=== PATIENT | male | born 1945 | race Caucasian/White ===

== ENCOUNTER 2019-03-07 09:03 | Day surgery (SDC) | payer MEDICARE, BC ==
[2019-03-06 12:39] LABS: CLARITY,URINE CLEAR (Clear); COLOR,URINE STRAW (Yellow); GLUCOSE, URINE NEGATIVE (Neg); KETONES,URINE NEGATIVE (Neg); LEUKOCYTE ESTERASE ,URINE NEGATIVE (Neg); NITRITES, URINE NEGATIVE (Neg); OCCULT BLOOD,URINE NEGATIVE (Neg); PROTEIN,URINE NEGATIVE (Neg); UROBILINOGEN,URINE 0.2 E.U/dL (0.2-1.0)
[2019-03-06 12:40] LABS: UA COLLECTION TYPE VOIDED
[2019-03-06 12:44] LABS: BASOPHILS % (AUTO) 0.5 % (0-1); EOSINOPHILS # (AUTO) 0.1 X10'3 (0-0.9); LYMPHOCYTES # (AUTO) 1.7 X10'3 (1.1-4.8); LYMPHOCYTES % (AUTO) 27.5 % (21-51); MEAN CORPUSCULAR HEMOGLOBIN 33.2 PG (27.0-31.0); MEAN CORPUSCULAR HGB CONC 35.1 g/dL (33.0-36.5); MEAN CORPUSCULAR VOLUME 94.6 FL (78-98); MONOCYTES # (AUTO) 0.7 X10'3 (0-0.9); MONOCYTES % (AUTO) 11.8 % (2-12); NEUTROPHILS # (AUTO) 3.7 X10'3 (1.8-7.7); NEUTROPHILS % (AUTO) 58.2 % (42-75); PRE OP HEMATOCRIT 41.5 % (42.0-52.0); PRE OP HEMOGLOBIN 14.6 g/dL (14.0-17.9); PRE OP PLATELET COUNT 174 X10'3 (140-440); RED BLOOD COUNT 4.39 X10'6 (4.70-6.10); RED CELL DISTRIBUTION WIDTH 13.5 % (11.5-14.5)
[2019-03-06 12:55] LABS: ALBUMIN 3.9 G/DL (3.4-5.0); ALBUMIN/GLOBULIN RATIO 1.3 (1.1-1.5); ALKALINE PHOSPHATASE 83 IU/L (46-116); BLOOD UREA NITROGEN 14 MG/DL (7-18); BUN/CREATININE RATIO 14.3 (5.4-32.0); CALCIUM 9.7 MG/DL (8.5-10.1); CHLORIDE 101 MMOL/L (99-107); CREATININE 0.98 MG/DL (0.60-1.10); PRE OP ALT 53 U/L (30-65); PRE OP ANION GAP 3 (8-16); PRE OP AST 38 U/L (10-37); PRE OP BILIRUB, TOTAL 0.7 MG/DL (0.0-1.0); PRE OP GLUCOSE 90 MG/DL (70-104); PRE OP POTASSIUM 4.3 MMOL/L (3.4-5.1); PRE OP SODIUM 135 MMOL/L (135-145); TOTAL CARBON DIOXIDE 31.1 MMOL/L (24-32); TOTAL PROTEIN 6.9 G/DL (6.4-8.2); eGFR 75 ML/MIN
[~2019-03-07] VITALS: Ht 182.9 cm; Wt 93.0 kg
[2019-03-07] VITALS (11 sets, daily range): BP systolic 144–154; BP diastolic 80–105
[~2019-03-07 09:03] MED LIST: BISA-155 PO; CEVI30CA7 PO; CHOL100044 PO; DOCU-20 PO; FAMO-128 PO; FLUD0.1T PO; LEVO125T PO; MIDO5TAB PO; MULT-1085 PO; OCUVITE PO; VITA1TAB20 PO
[2019-03-07] MEDS ORDERED: famotidine 20mg tablet PO ONE (10:15)
[2019-03-07] MEDS ORDERED: ringers solution, lacted 1,000 ML IV SCH ×2 (10:15→12:08)
[2019-03-07] MEDS ORDERED: cefazolin/dext.iso 2gm/100 ML IV ONE (10:15)
[2019-03-07] MEDS ORDERED: ceFAZolin 1000mg inj ONE (10:48)
[2019-03-07] MEDS ORDERED: BUPIVAcaine/PF 2.5 mg/ml (0.25%) 30ml vial ONE (10:48)
[2019-03-07] MEDS ORDERED: sevoflurane 250ml liquid IH ONE (11:09)
[2019-03-07] MEDS ORDERED: fentaNYL/PF 50MCG/1 ML 2ML syringe ONE ×2 (11:13→12:47)
[2019-03-07] MEDS ORDERED: HYDROmorphone inj. 0.5 MG/0.5 ML DISP.SYRIN IV PRN (12:10)
[2019-03-07] MEDS ORDERED: ondansetron/PF 4mg/2ml inj IV PRN (12:10)
[2019-03-07] MEDS ORDERED: morphine 4 MG/ML inj SYRINge IV PRN (12:10)
--- NOTE | 2019-03-07 13:00 | NUR ---
Received from OR via [facility] , accompanied by Anesthesiologist DAVIAN and report given by Anesthesiolgist. PATIENT WITH 20G PIV IN LEFT UE RUNNING LR AT 100. PATIENT WITH 2 ABDOMINAL LAP SITES PRESENT. NO PAIN AT THIS TIME ACCORDING TO PATIENT. HEALY CATHETER WITH 400 CC OF CLEAR YELLOW URINE PRESENT. 10L MASK ON WITH 98% SATURATIONS. Addendum: 03/07/19 at 1314 by Milind Earl RN, RN Amended: Links added.
[2019-03-07] MEDS ORDERED: LIDOcaine 2% (20mg/ml) 5ml vial ONE (13:37)
[2019-03-07] MEDS ORDERED: rocuronium 10mg/ml inj IV ONE (13:37)
[2019-03-07] MEDS ORDERED: propofol inj 20 ML IV ONE (13:37)
[2019-03-07] MEDS ORDERED: neostigmine methylsulfate 1 MG/ML 10ml vial ONE (13:37)
[2019-03-07] MEDS ORDERED: ePHEDrine 50MG/ML INJ. ONE (13:37)
[2019-03-07] MEDS ORDERED: dexamethasone sod phosphate 4mg/ml inj. ONE (13:37)
[2019-03-07] MEDS ORDERED: ondansetron/PF 4mg/2ml inj ONE (13:37)
[2019-03-07] MEDS ORDERED: glycopyrrolate 0.2mg/ml inj ONE (13:37)
--- NOTE | 2019-03-07 14:20 | NUR ---
ALL DC CRITERIA HAS BEEN MET. IV TAKEN OUT WITHOUT COMPLICATIONS. ALL INSTRUCTIONS COVERED AND ALL QUESTIONS ANSWERED. DRESSINGS CDI. OUT VIA WHEELCHAIR TO PERSONAL VEHICLE WHERE PATIENT WAS SECURED IN AND DRIVEN HOME BY FAMILY. ALL DC INSTRUCTIONS COVERED WITH DAUGHTER AND . ALL QUESTIONS ANSWERED. ASSISTED INTO VEHICLE AND SECURED IN FRONT SEAT. VSS Addendum: 03/07/19 at 1448 by Milind Earl RN, RN Amended: Links added.
== END 2019-03-07 14:20 | disposition home or self-care (01) ==
LOC: PAS 09:03
PROVIDERS: ATTEND Surgery
DX: K40.90 Unilateral inguinal hernia, without obstruction or gangrene, not specified as recurrent (principal); Z85.89 Personal history of malignant neoplasm of other organs and systems; E03.9 Hypothyroidism, unspecified; Z79.899 Other long term (current) drug therapy; Z98.890 Other specified postprocedural states
CPT/HCPCS: 36415; 49650; 80053; 81003; 82948; 85025; 93005; C1713; C1781; J0690; J1100; J2001; J2405; J2704; J2710; J3010; J3490; J7120; A4315

== ENCOUNTER 2019-09-11 04:59 | Emergency (ER) | payer MEDICARE, BC ==
[~2019-09-11] VITALS: Ht 182.9 cm; Wt 90.9 kg
[~2019-09-11 04:59] MED LIST changes: -MIDO5TAB PO; +MIDO5TAB4 PO
--- NOTE | 2019-09-11 05:10 | NUR ---
Dr. Collins notified of patient and patient's condition.
[2019-09-11] MEDS ORDERED: normal saline 1000ml 1,000 ML IV ONE (05:15)
--- NOTE | 2019-09-11 05:27 | NUR ---
Pt transport to CT via wheelchair. Pt able to transfer without assistance. No c/o dizziness.
[2019-09-11 06:21] LABS: BASOPHILS % (AUTO) 0.2 % (0-1); EOSINOPHILS % (AUTO) 0.6 % (0-6); HEMATOCRIT 42.2 % (42.0-52.0); HEMOGLOBIN 14.6 g/dl (14.0-17.9); LYMPHOCYTES # (AUTO) 0.6 X10'3 (1.1-4.8); LYMPHOCYTES % (AUTO) 7.5 % (21-51); MEAN CORPUSCULAR HEMOGLOBIN 33.2 PG (27.0-31.0); MEAN CORPUSCULAR HGB CONC 34.7 g/dL (33.0-36.5); MEAN CORPUSCULAR VOLUME 95.8 FL (78-98); MEAN PLATELET VOLUME 7.9 FL (7.4-10.4); MONOCYTES # (AUTO) 0.5 X10'3 (0-0.9); MONOCYTES % (AUTO) 6.7 % (2-12); NEUTROPHILS # (AUTO) 6.5 X10'3 (1.8-7.7); PLATELET COUNT 144 X10'3 (140-440); RED BLOOD COUNT 4.41 X10'6 (4.70-6.10); RED CELL DISTRIBUTION WIDTH 13.2 % (11.5-14.5); WHITE BLOOD COUNT 7.6 X10'3 (4.5-11.0)
[2019-09-11 06:37] LABS: PARTIAL THROMBOPLASTIN TIME 26 SECONDS (22-32)
[2019-09-11 06:52] LABS: ALANINE AMINOTRANSFERASE 50 U/L (12-78); ALBUMIN 3.8 G/DL (3.4-5.0); ALBUMIN/GLOBULIN RATIO 1.2 (1.1-1.5); ALKALINE PHOSPHATASE 105 IU/L (46-116); ANION GAP 7 (8-16); ASPARTATE AMINO TRANSFERASE 44 U/L (10-37); BILIRUBIN,TOTAL 0.7 MG/DL (0.1-1.0); BLOOD UREA NITROGEN 14 MG/DL (7-18); BUN/CREATININE RATIO 15.4 (5.4-32.0); CALCIUM 9.7 MG/DL (8.5-10.1); CHLORIDE 104 MMOL/L (99-107); CREATININE 0.91 MG/DL (0.60-1.10); GLUCOSE 97 MG/DL (70-104); MAGNESIUM 2.2 MG/DL (1.5-2.4); POTASSIUM 3.9 MMOL/L (3.5-5.1); SODIUM 138 MMOL/L (135-145); TOTAL CARBON DIOXIDE 27.1 MMOL/L (24-32); TOTAL PROTEIN 6.9 G/DL (6.4-8.2); eGFR 82 ML/MIN
[2019-09-11] MEDS ORDERED: ESCI5TAB12 PO (06:55)
[2019-09-11 07:03] LABS: CLARITY,URINE CLEAR (Clear); COLOR,URINE YELLOW (Yellow); GLUCOSE, URINE NEGATIVE (Neg); KETONES,URINE NEGATIVE (Neg); LEUKOCYTE ESTERASE ,URINE NEGATIVE (Neg); NITRITES, URINE NEGATIVE (Neg); OCCULT BLOOD,URINE NEGATIVE (Neg); PROTEIN,URINE NEGATIVE (Neg); UROBILINOGEN,URINE 0.2 E.U/dL (0.2-1.0)
[2019-09-11 07:04] LABS: UA COLLECTION TYPE CLN CATCH MIDSTREAM
--- NOTE | 2019-09-11 08:00 | NUR ---
TC FROM TRANSFER CENTER. PATIENT IS ACCEPTED TO [facility], ROOM 472-A, PER DR. AKHTAR. TRANSPORTATION ARRANGEMENTS TO FOLLOW. PATIENT AND NOTIFIED OF PROGRESS AND PENDING TRANSFER TO [facility].
[2019-09-11 08:03] VITALS: BP 122/84
== END 2019-09-11 08:51 | disposition short-term general hospital (02) ==
LOC: ER 05:00
DX: S06.4X9A Epidural hemorrhage with loss of consciousness of unspecified duration, initial encounter (principal); I95.9 Hypotension, unspecified; Z98.890 Other specified postprocedural states; Z79.899 Other long term (current) drug therapy; W18.39XA Other fall on same level, initial encounter; Y93.89 Activity, other specified; Y92.89 Other specified places as the place of occurrence of the external cause; Y99.8 Other external cause status
CPT/HCPCS: 36415; 70450; 71045; 72125; 80053; 81003; 83605; 83735; 84145; 85025; 85610; 85730; 93005; 96360; 99285; J7030